=== PATIENT | male | born 2000 | race American Indian/Alaskan Native ===

== ENCOUNTER 2022-02-07 19:40 | Emergency (ER) | payer SELFPAY ==
[2022-02-07 20:29] VITALS: BP 121/74
== END 2022-02-08 01:35 | disposition left against medical advice (07) ==
LOC: ED 19:40
DX: J11.1 Influenza due to unidentified influenza virus with other respiratory manifestations (principal); R09.89 Other specified symptoms and signs involving the circulatory and respiratory systems; Z53.21 Procedure and treatment not carried out due to patient leaving prior to being seen by health care provider